=== PATIENT | female | born 1945 | race Caucasian/White ===

== ENCOUNTER 2024-07-20 08:25 | Outpatient (REF) | payer MEDICARE, SELFPAY ==
--- OUTSIDE RECORDS SUMMARY | 2024-07-20 08:47 | XMS_ITS | Clinical Summary ---
Author Organization [facility] [address] [facility] Address [address] [facility] [place] [address] Phone Care Team Providers Care Channel Business Manager Name Role Phone Opal Gallardo MD Primary Care Provider [phone] Allergies Active Allergy Reactions Criticality Noted Date Comments Cephalexin Weakness Medium 01/26/2024 Nortriptyline Hives 06/23/2022 Medications melatonin 10 mg tablet Take 1 tablet (10 mg total) by mouth at bedtime. Active cetirizine (ZyrTEC) 10 mg capsule Take 10 mg by mouth daily. 4 Active amitriptyline (ELAVIL) 75 mg tablet Take by mouth at bedtime. Active milnacipran (Savella) 100 mg tablet Take 1 tablet (100 mg total) by mouth 2 (two) times a day. 3 Active zonisamide (ZONEGRAN) 50 mg capsule Take 3 Capsules by mouth every morning AND 5 Capsules at bedtime. 3 Active CRANBERRY ORAL Cranberry 180 MG Cap Sig - Route: Take ??by mouth. - Oral Active polyethylene glycol (MIRALAX) 17 gram packet Sig - Route: Take by mouth. - Oral Active multivitamin with minerals tablet Take 1 tablet by mouth 1 (one) time each day. Active glucosamine/cho ndr arshad A sod (OSTEO BI-FLEX ORAL) Take by mouth. Active sertraline (ZOLOFT) 50 mg tablet TAKE 1 TABLET BY MOUTH ONCE DAILY 90 tablet 1 5 Active celecoxib (CeleBREX) 100 mg capsule TAKE 1 CAPSULE BY MOUTH TWICE DAILY NEEDED FOR PAIN 180 capsule 1 5 Active amLODIPine (NORVASC) 5 mg tablet TAKE 1 TABLET BY MOUTH DAILY 90 tablet 1 5 Active omeprazole (PriLOSEC) [address] capsule TAKE 1 CAPSULE BY MOUTH DAILY 90 capsule 1 5 Active acetaminophen-c odeine (TYLENOL #4) 300-60 mg per tablet Take 1 tablet by mouth 1 (one) time each day if needed for moderate pain. Max Daily Amount: 1 tablet 28 tablet 5 Active acetaminophen-c odeine (TYLENOL #4) 300-60 mg per tablet Take 1 tablet by mouth 1 (one) time each day if needed for moderate pain. Max Daily Amount: 1 tablet 28 tablet 5 07/18/19 25 Discontinu ed(Reorder ) Active Problems Problem Noted Date Diagnosed Date Fibromyalgia 01/26/2024 Rib fracture 05/26/2023 Overview (12/20/2023): Last Assessment & Plan: 78-year-old woman with a left eighth rib fracture/partial separation at the costochondral junction after a fall in March. Her symptoms seem to have improved to the point where she does not have limitation on her daily activities. She says occasionally she will have points in time with certain movements that hurt but again this does not limit her daily activities. I discussed with her rib fractures in general and how can take up to 3 months to heal completely. This being at the costochondral junction it may take more than that. My recommendation at this point in time is to continue with regular pain control with Tylenol and ibuprofen for 2 weeks then to start to wean off the ibuprofen and continue with the Tylenol as she does that anyway. If the pain suddenly gets worse, she has any difficulty breathing, or after 3 months the pain has not changed at all, she was instructed to call the office back and we will arrange for more testing. All questions answered. Depression 08/11/2022 GERD (gastroesophageal reflux disease) 3 HTN (hypertension) 08/11/2022 Seasonal allergies 08/11/2022 Encounters Date Type Department Care Team Description 07/13/2024 8:45 AM EDT - 07/13/2024 11:59 PM EDT Hospital Encounter Radiology Department - [address] [phone] Thyroid nodule Discharge Disposition: Home or Self Care 07/02/2024 6:13 PM EDT - 07/02/2024 11:59 PM EDT Hospital Encounter Radiology Department - [address] [phone] Thyroid nodule Discharge Disposition: Home or Self Care 06/22/2024 Telephone Endocrinology - [address] [phone] Tamia Juárez MD 06/21/2024 2:30 PM EDT Office Visit Adult Medicine [place] - [address] [phone] Opal Gallardo MD Primary hypertension (Primary Dx); Persistent depressive disorder; Fibromyalgia; Bilateral hearing loss, unspecified hearing loss type; Screening for colon cancer 05/01/2024 Telephone Endocrinology - [address] [phone] Tamia Juárez MD provider call back from Last 3 Months Immunizations Name Administration Dates Next Due COVID-19 (Pfizer/Comirnaty) 12yo and older 01/19 Influenza trivalent, 0.5mL ( Fluzone High-dose) 65yo and older 01/20/2024,12/18/2022,12/25/2020 Pfizer (age 5-11) Bivalent, COVID-19 01/25/2022 Pneumococcal conjugate 20 va lent (Prevnar 20, PCV 20) 2mo and older 01/25/2022 RSV, bivalent, protein subun it RSVpreF, 0.5mL, Preservative Free (Arexvy) 60yo and older 01/18/2023 Tdap Tetanus diptheria acell ular pertussis (Boostrix; Adacel) 7yo and older 01/26/2023 Zoster recombinant (Shingrix ) 19yo and older 11/02/2018 Surgical History Surgery Date Site/Laterality Comments OTHER SURGICAL HISTORY PROCEDURE: DENIES PREVIOUS SURGERY Medical History Medical History Date Comments Depression DX:Depression GERD (gastroesophageal reflu x disease) DX:GERD (gastroesophageal re flux disease) Fibromyalgia DX:Fibromyalgia Hoarseness DX:Hoarseness; C OMMENT: due to acid reflux Essential (primary) hypertension DX:Essential (primary) hypertension Skin cancer 05/26/2023 DX:Skin cancer Kidney stones 05/26/2023 DX:Kidney stones Family History Medical History Relation Name Comments Hypertension Father Other: Aortic Aneurysm Father Other: Heart Disease Father Hypertension Mother Other: Heart Disease Mother COPD Sister 1 Hypertension Sister 1 Other: Heart Disease Sister 1 Colon cancer Sister 2 Hypertension Sister 2 Relation Name Status Comments Father Mother Sister 1 Sister 2 Social History Tobacco Use Types Packs/Day Years Used Date Smoking Tobacco: Former Cigarettes 1 38 0 03/21/1962 - 03/21/2000 Smokeless Tobacco: Never Tobacco Cessation:Counseling Given: Not Answered Alcohol Use Standard Drinks/Week Comments Yes 0 (1 standard drink = 0.6 oz pur e alcohol) Housing Instability Answer Date Recorde d Are you worried that in the next 2 months you may not have stable housing? No 04/05/2024 Food Access & Nutrition Answer Date Rec orded Do you have access to a vari ety of food including fruits and vegetables? Yes 04/05/2024 Access to Healthcare Answer Date Record ed Within the last 3 months, ho w many times did you visit the emergency department for your medical care? 0 04/05/2024 Health Literacy Answer Date Recorded How often do you need to hav e someone help you when you read instructions, pamphlets, or other written material from your doctor or pharmacy? Never 04/05/2024 Caregiver: How often do you need to have someone help you when you read instructions, pamphlets, or other written material from your doctor or pharmacy? Not on file 04/05/2024 Financial Risk Answer Date Recorded How hard is it for you to pa y for the very basics like food, housing, medical care, and air conditioning / heating? Not very hard 04/05/2024 Transportation Answer Date Recorded Has the lack of transportati on kept you from meetings, work, or from getting things needed for daily living? No Has the lack of transportati on kept you from medical appointments or from getting medications? No 04/05/2024 Social Isolation Answer Date Recorded How often do you feel lonely or isolated from th ose around you? Never 04/05/2024 Food Risk Answer Date Recorded Within the past 12 months we worried whether our food would run out before we got money to buy more. Never true 04/05/2024 Within the past 12 months th e food we bought just didn't last and we didn't have money to get more. Never true 04/05/2024 Dependent Care Answer Date Recorded Do you need help finding or paying for care for your loved ones. For example, professor of early childhood education or elderly care for an older adult? No 04/05/2024 Education Answer Date Recorded Do you think completing more education or training, like finishing a GED, going to college, or learning a trade, would be helpful for you? No 04/05/2024 Employment and Income Answer Date Recor ded During the last four weeks, have you been actively looking for work? No 04/05/2024 Living Situation Answer Date Recorded What is your living situation? 0 04/05/2024 Comments No Sex and Gender Information Value Date Recorded Sex Assigned at Not on file Legal Sex Female 4:01 PM EST Gender Identity Female 06/15/2024 8:18 AM EDT Sexual Orientation Not on file Obstetrics History Last Filed Vital Signs Vital Sign Reading Time Taken Comments Blood Pressure 147/88 06/21/2024 3:03 PM EDT Pulse 76 06/21/2024 2:36 PM EDT Temperature 36.4 ??C (97.5 ??F) 06/21/2024 2:36 PM ED T Respiratory Rate 16 06/21/2024 2:36 PM EDT Oxygen Saturation 97% 02/28/2024 1:42 PM EST Inhaled Oxygen Concentration - - Weight 56.2 kg (124 lb) 06/21/2024 2:36 PM EDT Height 160 cm (5' 3 ) 06/21/2024 2:36 PM EDT Body Mass Index 21.97 06/21/2024 2:36 PM EDT Plan of Treatment Upcoming Encounters Date Type Department Care Team (Late st Contact Info) Description 08/07/2024 1:15 PM EDT Office Visit Adult Medicine [address] [phone] Opal Gallardo MD [address] [place], [place] 03/01/2025 11:00 AM EST Office Visit Endocrinology [address] [phone] Tamia Juárez MD [address] [place] [address] Health Maintenance Due Date Last Done Comments Hepatitis B Vaccines (2 of 3 - 19+ 3-dose series) 04/23/2013 03/26/2013 Zoster Vaccines (2 of 2) 12/28/2018 11/02/2018 Medicare Annual Wellness Visit 02/17/2022 COVID-19 Vaccine (7 - Pfizer risk 2023- season) 2024 01/20/2024, 12/18/2022, 01/25/2022, Additional history exists Hypertension/CHF/CAD Annual BMP Blood Test 10/25/2024 10/26/2023, 10/26/2023 Social Influencers of Health Screening 04/05/2025 04/05/2024 Depression Screening 06/15/2025 06/15/2024 Falls Risk Assessment 06/21/2025 06/21/2024, 025 Cholesterol Screening (Lipid Panel) 05/12/2028 05/12/2023 DTaP,Tdap,and Td Vaccines (2 - Td or Tdap) 01/26/2033 01/26/2023 Osteoporosis Screening (Bone Density Screening) 04/14/2033 04/14/2023 Hepatitis A Vaccines Aged Out 03/26/2013 No long er eligible based on patient's age to complete this topic Pneumococcal Vaccine: 50+ Years Completed 01/25/2022 Hepatitis C Screening Completed 08/11/2022 RSV Immunization Adult Patients Completed 01/18/2023 Influenza Vaccine Completed 01/20/2024, , 12/25/2020 HIB Vaccines Aged Out No longer eligi ble based on patient's age to complete this topic HPV Vaccines Aged Out No longer eligi ble based on patient's age to complete this topic IPV Vaccines Aged Out No longer eligi ble based on patient's age to complete this topic MMR Vaccines Aged Out No longer eligi ble based on patient's age to complete this topic Meningococcal ACWY Vaccine Aged Out N o longer eligible based on patient's age to complete this topic Meningococcal B Vaccine Aged Out No l onger eligible based on patient's age to complete this topic RSV Immunization Patients Under 20 months Aged Out No longer eligible based on patient's age to complete this topic Varicella Vaccines Aged Out No longer eligible based on patient's age to complete this topic Procedures Procedure Name Priority Date/Time Associated Diagnosis Comments US GUIDED FINE NDL ASP 1ST LESION Routine 07/13/2024 9:21 AM EDT Thyroid nodule FINE NEEDLE ASPIRATION Routine 07/13/2024 9:21 AM EDT Thyroid nodule US HEAD NECK SOFT TISSUE Routine 07/02/2024 6:41 PM EDT Thyroid nodule ANNUAL BMP BLOOD TEST Routine 10/26/2023 LIPID PANEL Routine 05/12/2023 DXA BONE DENSITY STUDY 1+ SITS AXIAL SKEL Routine 04/14/2023 3:42 PM EST Encounter for screening for osteoporosis HEPATITIS C SCREENING Routine 08/11/2022 from Last 3 Months or Most Recently Relevant to Health Maintenance Results * US Guided Fine Ndl Asp 1st Lesion (07/13/2024 9:21 AM EDT) Anatomical Region Laterality Modality Ultrasound 07/13/2024 10:3 9 AM EDT Impressions 07/13/2024 10:40 AM EDT Ultrasound guided aspiration of the left lower pole thyroid lobe nodule. Final cytology is pending -------- FINAL REPORT -------- Dictated By: Beau Mcclellan Dictated Date: 07/13/2024 10:39 ET Assigned Physician: Beau Mcclellan Reviewed and Electronically Signed By: Beau Mcclellan Signed Date: 07/13/2024 10:40 ET Workstation ID: [id number] Transcribed By: Self Edit Transcribed Date: 07/13/2024 10:39 ET Narrative 07/13/2024 10:40 AM EDT THYROID FNA CLINICAL HISTORY: Patient presents for ultrasound-guided fine-needle aspiration. PROCEDURES: 1. Limited pre procedure ultrasound of the left lower pole thyroid nodule. ?? 2. FNA sampling of the left lower pole thyroid nodule MEDICATIONS: -Lidocaine 1% 10 mL SQ. COMPLICATIONS: None. ESTIMATED BLOOD LOSS: Minimal SPECIMENS: Total of 3 FNA samples. PROCEDURE NOTE: The procedure, risks, benefits, and alternatives were carefully explained to the patient and written informed consent was obtained. ??The patient was placed supine on the ultrasound table. ??A time out was performed. ??A limited ultrasound of the thyroid was performed to localize the nodule and choose appropriate needle entry and trajectory. ??The patient was prepped and draped in usual sterile fashion. The skin and subcutaneous tissues were anesthetized with Lidocaine. Under ultrasound guidance, a 25-gauge needle was advanced to the lesion. FNA samples were obtained. The needles were removed Samples were sent for cytology/pathology. The patient was stable after the procedure and discharged. ?? Procedure Note Beau Mcclellan MD - 07/13/2024 THYROID FNA CLINICAL HISTORY: Patient presents for ultrasound-guided fine-needleaspiration. PROCEDURES: 1. Limited pre procedure ultrasound of the left lower pole thyroid nodule. 2. FNA sampling of the left lower pole thyroid nodule MEDICATIONS: -Lidocaine 1% 10 mL SQ. COMPLICATIONS: None. ESTIMATED BLOOD LOSS: Minimal SPECIMENS: Total of 3 FNA samples. PROCEDURE NOTE: The procedure, risks, benefits, and alternatives were carefully explainedto the patient and written informed consent was obtained. The patient wasplaced supine on the ultrasound table. A time out was performed. Alimited ultrasound of the thyroid was performed to localize the nodule andchoose appropriate needle entry and trajectory. The patient was preppedand draped in usual sterile fashion. The skin and subcutaneous tissues were anesthetized with Lidocaine. Underultrasound guidance, a 25-gauge needle was advanced to the lesion. FNAsamples were obtained. The needles were removed Samples were sent for cytology/pathology. The patient was stable after the procedure and discharged. IMPRESSION: Ultrasound guided aspiration of the left lower pole thyroid lobe nodule. Final cytology is pending -------- FINAL REPORT -------- Dictated By: Beau Mcclellan Dictated Date: 07/13/2024 10:39 ET Assigned Physician: Beau Mcclellan Reviewed and Electronically Signed By: Beau Mcclellan Signed Date: 07/13/2024 10:40 ET Workstation ID: [id number] Transcribed By: Self Edit Transcribed Date: 07/13/2024 10:39 ET us Tamia Juárez MD IMG US PROCEDURES Final Result * Fine needle aspiration (07/13/2024 9:21 AM EDT) Final Diagnosis Thyroid, left lower lobe -fine needle aspirate (ThinPrep, direct smears): Nondiagnostic (Howes Category I). Insufficient follicular cells present for evaluation of neoplasm 07/17/2024 12:02 PM EDT [facility] Clinical Information LT LP THYROID 07/17/2024 12:02 PM EDT [facility] Specimen A Adequacy Unsatisfactory for Evaluation/Unsucc essful attempt 07/17/2024 12:02 PM EDT [facility] Gross Description A. Thyroid, Left, Lt Lp Thyroid: Received in Cytolyt 30 ml of pink fluid, 3 air dried direct smears, 3 alcohol fixed smears 07/17/2024 12:02 PM EDT [facility] Disclaimer Unless otherwise specified, all tissue is 10% NB formalin fixed and paraffin embedded. Technical cytopathology services provided by [facility], at [address] [place] [address], [place] [address] (CLIA # [id number]/Shalini Azul MD, Librarian Specialist.) 07/17/2024 12:02 PM [facility] Fine Needle Aspirate Structure of left lobe of thyroid gland / Unknown 07/13/2024 9:21 AM EDT 07/16/2024 10:52 AM EDT Comment:LT LP THYROID us Beau Mcclellan MD LAB PATHOLOGY ORDERABLES Fi nal Result [facility] ([facility] [address] [place] [address], [place] [phone] * US Head Neck Soft Tissue (07/02/2024 6:41 PM EDT) Anatomical Region Laterality Modality Head and Neck Ultrasound 07/03/2024 9:58 AM EDT Impressions 07/03/2024 10:03 AM EDT 1. ??Left lower pole 1.7 cm isoechoic solid nodule mildly increased from prior examination. ??Continue sonographic follow-up -------- FINAL REPORT -------- Dictated By: Beau Mcclellan Dictated Date: 07/03/2024 09:58 ET Assigned Physician: Beau Mcclellan Reviewed and Electronically Signed By: Beau Mcclellan Signed Date: 07/03/2024 10:03 ET Workstation ID: [id number] Transcribed By: Self Edit Transcribed Date: 07/03/2024 09:58 ET Narrative 07/03/2024 10:03 AM EDT Exam: Thyroid ultrasound. HISTORY: nodule? COMPARISON: Ultrasound thyroid from 02/03/2024 Technique: Grayscale and Doppler images of the thyroid gland were obtained. FINDINGS: The thyroid gland is normal in size. The right lobe measures 3.3 x 1.3 x 1.1 cm. The left lobe measures 4.6 x 2.1 x 2.3 cm. The thyroid isthmus is normal in size and measures 0.2 cm. The thyroid parenchyma is heterogenous Left Lobe: Midpole--1.9 x 1.7 x 2.0 cm hyperechoic solid heterogeneous nodule with cystic spaces grossly stable from prior exam Lower pole--1.5 x 1.7 x 1.7 cm isoechoic solid heterogeneous nodule with a hypoechoic rim previously measuring 1.5 x 1.5 x 1.4 cm. Procedure Note Beau Mcclellan MD - 07/03/2024 Exam: Thyroid ultrasound. HISTORY: nodule? COMPARISON: Ultrasound thyroid from 02/03/2024 Technique: Grayscale and Doppler images of the thyroid gland wereobtained. FINDINGS: The thyroid gland is normal in size. The right lobe measures 3.3 x 1.3 x1.1 cm. The left lobe measures 4.6 x 2.1 x 2.3 cm. The thyroid isthmus isnormal in size and measures 0.2 cm. The thyroid parenchyma isheterogenous Left Lobe: Midpole--1.9 x 1.7 x 2.0 cm hyperechoic solid heterogeneous nodule withcystic spaces grossly stable from prior exam Lower pole--1.5 x 1.7 x 1.7 cm isoechoic solid heterogeneous nodule with ahypoechoic rim previously measuring 1.5 x 1.5 x 1.4 cm. IMPRESSION: 1. Left lower pole 1.7 cm isoechoic solid nodule mildly increased fromprior examination. Continue sonographic follow-up -------- FINAL REPORT -------- Dictated By: Beau Mcclellan Dictated Date: 07/03/2024 09:58 ET Assigned Physician: Beau Mcclellan Reviewed and Electronically Signed By: Beau Mcclellan Signed Date: 07/03/2024 10:03 ET Workstation ID: [id number] Transcribed By: Self Edit Transcribed Date: 07/03/2024 09:58 ET Tamia Juárez MD [facility]ED[place] Final Result * Annual BMP Blood Test (10/26/2023) Pathologist [facility] Annual BMP Blood Test ABSTRACTED Historical Provider HEALTH MAINTENANCE Final Result * (ABNORMAL) Lipid panel (05/12/2023) LDL/HDL Ratio 3 0 - 4 Triglycerides 85 0 - 150 mg/dL Cholesterol 222(A) 0 - 200 mg/dL HDL 74 >=40 mg/dL LDL Cholesterol 131(A) 0 - 100 mg/dL Blood Venous blood specimen / Unknown us Historical Provider LAB BLOOD ORDERABLES Mariangel l Result * DXA BONE DENSITY STUDY 1+ SITS MANNY SKEL (04/14/2023 3:42 PM EST) Anatomical Region Laterality Modality Bone Densitometr y 01/26/2023 9:32 AM EST Narrative 04/15/2023 10:20 AM EST BONE DENSITY (DEXA) ? Lumbar Spine T-score is -0.7. ?? (SD relative to 20-29 y/o adult) Z-score is 1.8. ??(SD relative to age matched peers) This is considered normal by WHO criteria. Left Hip T-score is -1.8. Z-score is 0.3. This is considered osteopenia by WHO criteria. IMPRESSION: This patient is considered to have osteopenia by WHO criteria. This patient has a 20% risk of major osteoporotic fracture and a 4.8% risk of hip fracture over the next 10 years. (World Health Organization Fracture Risk Assessment) [facility] Department of Internal Medicine recommends using National Osteoporosis Foundation (NOF) guidelines in treatment decisions related to osteoporosis. NOF guidelines suggest considering treatment for postmenopausal women and men aged 50 or older presenting with the following: History of hip or vertebral fracture. T-score = -2.5 (DXA) at the femoral neck, total hip, or spine, after appropriate evaluation to exclude secondary causes. Low bone mass (T-score between -1.0 and -2.5 at the femoral neck or spine) AND a 10-year probability of a hip fracture = 3% OR a 10-year probability of a major osteoporosis-related fracture = 20% based on the [place]-adapted WHO algorithm Please note that all treatment decisions require clinical judgment and consideration of individual patient factors, including patient preferences, co-morbidities, previous drug use, risk factors not captured in the FRAX model (e.g., frailty, falls, vitamin D deficiency, increased bone turnover, interval significant decline in bone density) and possible under- or over-estimation of fracture risk by FRAX. Optional alternative screening schedule based on yissel Martines., [facility] [place] April 08, 2011 for patients with osteopenia (based on hip BMD T-score) is as follows: * ??advanced osteopenia (T scores -2.00 to -2.49), BMD testing every year * ??moderate osteopenia (T scores -1.50 to -1.99), BMD testing every 5 years mild osteopenia or normal BMD (T scores -1.50 and higher), BMD testing every 15 years Procedure Note Georgie Gale MD - 11/07/2023 BONE DENSITY (DEXA) Lumbar Spine T-score is -0.7. (SD relative to 20-29 y/o adult) Z-score is 1.8. (SD relative to age matched peers) This is considered normal by WHO criteria. Left Hip T-score is -1.8. Z-score is 0.3. This is considered osteopenia by WHO criteria. IMPRESSION: This patient is considered to have osteopenia by WHO criteria. Thispatient has a 20% risk of major osteoporotic fracture and a 4.8% risk of hip fracture over the next10 years. (World Health Organization Fracture Risk Assessment) [facility] of [facility] Medicinerecommends using National Osteoporosis Foundation (NOF) guidelines in treatment decisionsrelated to osteoporosis. NOF guidelines suggest considering treatment forpostmenopausal women and men aged 50 or older presenting with the following: History of hip or vertebral fracture. T-score = -2.5 (DXA) at the femoral neck, total hip, or spine, afterappropriate evaluation to exclude secondary causes. Low bone mass (T-score between -1.0 and -2.5 at the femoral neck or spine)AND a 10-year probability of a hip fracture = 3% OR a 10-year probability of a majorosteoporosis-related fracture = 20% based on the [place]-adapted WHO algorithm Please note that all treatment decisions require clinical judgment andconsideration of individual patient factors, including patient preferences, co- morbidities,previous drug use, risk factors not captured in the FRAX model (e.g., frailty, falls, vitaminD deficiency, increased bone turnover, interval significant decline in bone density) andpossible under- or over-estimation of fracture risk by FRAX. Optional alternative screening schedule based on kerrie Martines al., NEJMJanuary 2011 for patients with osteopenia (based on hip BMD T-score) is as follows: * advanced osteopenia (T scores -2.00 to -2.49), BMD testing every year * moderate osteopenia (T scores -1.50 to -1.99), BMD testing every 5years mild osteopenia or normal BMD (T scores -1.50 and higher), BMD testingevery 15 years Opal Gallardo MD IMG DXA PROCEDURES Final Result * Hepatitis C Screening (08/11/2022) [facility] Hepatitis C Screening ABSTRACTED Historical Provider HEALTH MAINTENANCE Final Result from Last 3 Months or Most Recently Relevant to Health Maintenance Insurance [employer] Advance Directives Documents on File Type Date Recorded 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 Health Care Decision (hx) 07/23/2013 [employer] DIRECTIVE Health Care Decision (hx) 07/23/2013 AD [employer] DIRECTIVE Health Care Decision (hx) 07/23/2013 AD MIR[employer]ONTES DIRECTIVE Health Care Decision (hx) 07/23/2013 AD MIRAMONTES DIRECTIVE Health Care Decision (hx) 07/23/2013 AD MIRAMONTES DIRECTIVE Health Care Decision (hx) 07/23/2013 AD MIRAMONTES DIRECTIVE Health Care Decision (hx) 07/23/2013 AD MIRAMONTES DIRECTIVE Health Care Decision (hx) 07/23/2013 AD MIRAMONTES DIRECTIVE Health Care Decision (hx) 07/23/2013 AD MIRAMONTES DIRECTIVE [employer] Teams Channel Business Manager Relationship Specialty Start Date End Date Opal Gallardo MD [address] [place] [id number] PCP - General Internal Medicine 01/24/24
== END 2024-07-20 08:26 | disposition home or self-care (01) ==
LOC: HO.SH 08:25
PROVIDERS: Visit Provider Internal Medicine
DX: Z01.118 Encounter for examination of ears and hearing with other abnormal findings (principal); H91.93 Unspecified hearing loss, bilateral
CPT/HCPCS: 92557